=== PATIENT | female | born 1990 | race Caucasian/White ===

== ENCOUNTER 2016-06-18 21:54 | Emergency (ER) | payer OTHER ==
[~2016-06-18] VITALS: Ht 172.7 cm; Wt 82.0 kg
[2016-06-18 21:58] VITALS: BP 134/82; PULSE 93; TEMP 36.8; O2SAT 97; Ht 172.7 cm; Wt 82.0 kg
[2016-06-18] MEDS ORDERED: XYLOCAINE 1%/SOD BICARB 20 ML VIAL INFIL ONE (22:15)
[2016-06-18] MEDS ORDERED: ACET-1311 PO (22:19)
[2016-06-18] MEDS ORDERED: CHLO100T8 PO (22:19)
[2016-06-18] MEDS ORDERED: BUPR-102 PO (22:19)
[2016-06-18] MEDS ORDERED: RISP0.5T10 PO (22:19)
[2016-06-18] MEDS ORDERED: HALO2TAB PO (22:19)
[2016-06-18] MEDS ORDERED: DIPH25CA5 PO (22:19)
[2016-06-18] MEDS ORDERED: HALO5TAB PO (22:19)
[2016-06-18] MEDS ORDERED: [UNRECOGNIZED DRUG - CODE] PO (22:20)
[2016-06-18] MEDS ORDERED: MOML PO (22:20)
--- NOTE | 2016-06-19 01:03 | EMERGENCY ROOM VISIT NOTE ---
ED Visit Note First contact with patient: 21:56 Chief Complaint: Right arm laceration. History of Present Illness: Ms. Guerrero is a 25-year-old female who is brought into the ED the ambulance from the [facility] for a self- inflicted right arm laceration. Patient reports she is early at the [facility] because she has been hearing voices to harm herself. She feels like the medications that she is currently on is not helping her voices. She reports she heard voices approximately 2 hours that told her to cut her arm and she did. Patient reports she is not hearing voices at the current time. She does not have any pain in her laceration. She does not have any other complaints at this time. Review of Systems: As noted above in history of present illness. Past Medical History: Depression, asthma, C4 fracture. Current Medications: Medications Dose Route/Sig Max Daily Dose Days Date Category Milk Of Magnesia (Magnesium Hydroxide) 30 Ml Susp 30 Ml PO DAILY PRN 06/18/16 Reported Mylanta [place] (Calcium Carbonate-Mag Hydrox) 1 Yancy Yancy 30 Ml PO QID PRN 06/18/16 Reported Benadryl (Diphenhydramine Hcl) 25 Mg Cap 50 Mg PO DIRECTED PRN 06/18/16 Reported Thorazine (Chlorpromazine HCl) 100 Mg Tab 100 Mg PO TID PRN 06/18/16 Reported Tylenol (Acetaminophen) 325 Mg Tab 650 Mg PO Q4H PRN 06/18/16 Reported Risperdal (Risperidone) 0.5 Mg Tab 0.5 Mg PO HS 06/18/16 Reported Haldol (Haloperidol) 5 Mg Tab 5 Mg PO HS 06/18/16 Reported Haloperidol 2 Mg Tab 2 Mg PO QAM 30 06/18/16 Reported Bupropion Hcl Sr (Bupropion Hcl (Smoking [place]) 150 Mg Tab 150 Mg PO QAM 30 06/18/16 Reported Allergies to Medications: Clomipramine. Social History: Patient is currently a psychiatric hospital; she admits to tobacco use. Tetanus Immunization Status: 2012. Physical Examination: Vital Signs: Date Time Temp Pulse Resp B/P Pulse Ox O2 Delivery O2 Flow Rate FiO2 06/18/16 21:58 36.8 93 20 134/82 97 Room Air GENERAL: 25-year-old female in no acute distress, nontoxic-appearing, afebrile and hemodynamically stable. PSYCHOLOGICAL: Patient mood appears depressed. Her affect is flat. She does not seem to be responding to internal stimuli. No flight of ideas. Patient denies hallucinations. Patient currently denies wanting to hurt herself. NEUROLOGICAL: Awake, alert and oriented to person, place and time. Answering questions appropriately and following commands. Normal gait. Good hand eye coordination. No focal motor or sensory deficits. SKIN: Warm, dry and pink. Right Forearm: Over the proximal anterior aspect of the forearm patient has a 3.7 cm full-thickness laceration. No active bleeding. The wounds have been Steri-Stripped. RIGHT FOREARM: Soft tissue injury as noted above under SKIN. No bony deformity. No tenderness throughout the elbow, forearm, wrist or hand. Full range of motion in flexion and extension of the elbow, pronation and supination of the forearm and flexion, extension and radial and ulnar deviation of the wrist. Throughout the hand the skin was warm and pink and capillary refill was brisk. Distal pulses were intact and equal. ED Course: Patient is assessed as noted above. Wound Repair: Complexity: Basic Verbal consent was obtained after the risks and benefits were explained. The skin was prepped with betadine and a sterile field set. Wound edges of the wound was anesthetized with 2.7 ml buffered 1% lidocaine. The wound was explored for foreign bodies and none found. Copious irrigation was performed using sterile saline. With direct pressure the bleeding subsided. Debridement was not performed. The wound edges were approximated using 4-0 Ethilon with 6 simple interrupted sutures. Hemostasis and excellent approximation was achieved. Antibacterial ointment and a sterile dressing applied. No complications and the patient tolerated the procedure well. Patient was educated about tonight's findings and instructed on her treatment plan; she verbalizes understanding and agreement with this plan. Clinical Impression: Laceration of the right anterior forearm. Self-mutilation behavior. Disposition: Patient discharged home in stable condition; prior to departure he was reassessed and subjectively reported she was pain-free. Plan: Comfort measures, wound care, and signs of infection were discussed with the patient. Patient was encouraged to follow-up with primary care provider return to the ED for signs of infection and/or suture removal in 10-12 days.
== END 2016-06-18 22:40 | disposition home or self-care (01) ==
LOC: EDBD 21:54 → C.EDD 21:55
DX: S51.811A Laceration without foreign body of right forearm, initial encounter (principal); X78.9XXA Intentional self-harm by unspecified sharp object, initial encounter; Y92.199 Unspecified place in other specified residential institution as the place of occurrence of the external cause; F32.9 Major depressive disorder, single episode, unspecified; J45.909 Unspecified asthma, uncomplicated; Z79.899 Other long term (current) drug therapy